=== PATIENT | male | born 1995 | race African-American/Black ===

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

== ENCOUNTER 2019-09-25 12:23 | Emergency (ER) | payer SELFPAY ==
[~2019-09-25] VITALS: Ht 175.3 cm; Wt 60.0 kg
--- NOTE | 2019-09-25 13:21 | RAD ---
Exam performed: One view chest. Indication: Chest pain Date of Service: 09/25/2019 1:05 PM Comparison: None available. Single AP upright portable view chest findings: Cardiomediastinal silhouette is within limits of normal. No acute infiltrates, effusion or pneumothorax is detected. The bony structures are normal. Impression: No acute cardiopulmonary process is detected. Electronically signed by: Siomara Thorpe MD (09/25/2019 1:18 PM) [facility]
[2019-09-25 13:46] VITALS: BP 123/76
--- NOTE | 2019-09-25 14:13 | PHYS DOC ---
Past Medical History Past Medical History: No Pertinent History Past Surgical History: No Surgical History Smoking Status: Current Every Day Smoker Alcohol Use: Occasionally Drug Use: Marijuana Adult General Chief Complaint Chief Complaint: CHEST WALL PAIN HPI HPI Patient is a 24 year old male presented to ER today for evaluation of substernal chest pain that been going on for about 4 days. 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 Patient had been under a lot of stress lately, chest pain brought on with any Emotional problem or anxiety . She denies any family history heart problem, he denies any history of blood clot disorder. Patient denies any recent travel or operation. Patient denies any cough or fever. He had no history of hypertension or diabetes. Review of Systems Review of Systems All other ROS is negative unless otherwise noted in HPI Allergies Allergies Allergies Coded Allergies Type Severity Reaction Last Updated Verified No Known Drug Allergies 12/29/16 No Physical Exam Physical Exam See above Constitutional: Well developed, well nourished, no acute distress, non-toxic appearance. [] HENT: Normocephalic, atraumatic, bilateral external ears normal, oropharynx moist, no oral exudates, nose normal. [] Eyes: PERRLA, EOMI, conjunctiva normal, no discharge. [] Neck: Normal range of motion, no tenderness, supple, no stridor. [] Cardiovascular:Heart rate regular rhythm, no murmur [] Lungs & Thorax: Bilateral breath sounds clear to auscultation [] Abdomen: Bowel sounds normal, soft, no tenderness, no masses, no pulsatile masses. [] Skin: Warm, dry, no erythema, no rash. [] Back: No tenderness, no CVA tenderness. [] Extremities: No tenderness, no cyanosis, no clubbing, ROM intact, no edema. [] Neurologic: Alert and oriented X 3, normal motor function, normal sensory function, no focal deficits noted. [] Psychologic: Affect normal, judgement normal, mood normal. [] Current Patient Data Vital Signs Vital Signs Date Time Temp Pulse Resp B/P (MAP) Pulse Ox O2 Delivery O2 Flow Rate FiO2 09/25/19 13:46 67 16 123/76 (92) 97 Room Air 09/25/19 12:36 98.3 98.3 EKG EKG EKG was done at 13.25, heart rate of 71 beats per minute, normal sinus rhythm, no ST segment elevation.[] Radiology/Procedures Radiology/Procedures [][facility] [address] [place] [address] IMAGING REPORT Signed PATIENT: RANDAL ASCENCIO ACCOUNT: [id number] : 1995 LOCATION: ER AGE: 24 SEX: M EXAM STATUS: REG ER ORD. PHYSICIAN: CLAUDE VARGAS DO REASON: CHEST PAIN PROCEDURE: CHEST AP ONLY Exam performed: One view chest. Indication: Chest pain Date of Service: 09/25/2019 1:05 PM Comparison: None available. Single AP upright portable view chest findings: Cardiomediastinal silhouette is within limits of normal. No acute infiltrates, effusion or pneumothorax is detected. The bony structures are normal. Impression: No acute cardiopulmonary process is detected. Electronically signed by: Siomara Thorpe MD (09/25/2019 1:18 PM) [facility] DICTATED and SIGNED BY: SIOMARA THORPE MD DATE: 09/25/19 1318 Course & Med Decision Making Course & Med Decision Making Pertinent Labs and Imaging studies reviewed. (See chart for details) Patient is a 24-year-old male who was evaluated in the ER today due to chest pain. Patient had no history of hypertension, no history of hypo-diabetic, no history of blood clot disorder. Patient denied any family history of heart disease. Patient is only 24-year-old, the risks of him having a coronary event is very low. EKG and chest x-ray were normal. Will discharge him home. No further work up needed. Dragon Disclaimer Dragon Disclaimer This electronic medical record was generated, in whole or in part, using a voice recognition dictation system. Departure Departure Impression: Primary Impression: Atypical chest pain Disposition: HOME, SELF-CARE Condition: STABLE Referrals: Indra DAWN MD (PCP) follow up with your doctor as needed next week. Patient Instructions: Chest Pain (Nonspecific) Additional Instructions: Thank you for visiting our Emergency Department. We appreciate you trusting us with your care. If any additional problems come up don't hesitate to return to visit us. Please follow up with your primary care provider so they can plan additional care if needed and know about the problem that you had. If symptoms worsen come back to the Emergency Department. Any concerning symptoms that start such as chest pain, shortness of air, weakness or numbness on one side of the body, running high fevers or any other concerning symptoms return to the ER. The HEART Score for CP Pts HEART Score for Chest Pain: HEART Score for Chest Pain Response (Comments) Value History Slighlty/Non-Suspicious 0 ECG Normal 0 Age < 45 0 Risk Factors No Risk Factors 0 Total 0 Risk Factors: Risk Factors: DM, Current or recent (<one month) smoker, HTN, HLP, family history of CAD, obesity. Risk Scores: Score 0 - 3: 2.5% MACE over next 6 weeks - Discharge Home Score 4 - 6: 20.3% MACE over next 6 weeks - Admit for Clinical Observation Score 7 - 10: 72.7% MACE over next 6 weeks - Early Invasive Strategies CLAUDE VARGAS DO Sep 25, 2019 14:13
--- NOTE | 2019-09-26 09:07 | EKG ---
[facility] [address] [place] [address] Test Date: 2019-09-25 Test Time: 13:24:42 Pat Name: RANDAL ASCENCIO Department: Room: Gender: M Tub Operator: : 1995 Requested By: CLAUDE VARGAS Order Number: [id number] Reading MD: Measurements Intervals [place] Rate: 71 P: SC: QRS: 72 QRSD: 78 T: 21 QT: 344 QTc: 378 Interpretive Statements ATRIAL FIBRILLATION NON SPECIFIC ST-T ABNORMALITY (ELEVATION) ABNORMAL ECG No previous ECG available for comparison
== END 2019-09-25 14:19 | disposition home or self-care (01) ==
LOC: ER 12:23
DX: R07.89 Other chest pain (principal); F43.9 Reaction to severe stress, unspecified; F12.90 Cannabis use, unspecified, uncomplicated; F17.200 Nicotine dependence, unspecified, uncomplicated
CPT/HCPCS: 71045; 93005; 99284

== ENCOUNTER 2020-01-25 21:22 | Emergency (ER) | payer SELFPAY ==
[~2020-01-25] VITALS: Ht 175.3 cm; Wt 57.2 kg
--- NOTE | 2020-01-25 21:53 | RAD ---
Study: CR PORTABLE CHEST 1V Indication: Chest pain. Comparison: None. Findings: No pneumothorax or layering effusion. No airspace infiltrate. Within normal limits cardiomediastinal silhouette and orquidea. Grossly intact osseous structures. The visualized upper abdomen is unremarkable. Impression: No acute radiographic abnormality of the chest. Electronically signed by: WILLIAN RUFFIN MD (01/25/2020 9:50 PM) [id number]
[2020-01-25 22:00] LABS: BASO # 0.1 x10^3/uL (0.0-0.2); BASO % 1 % (0-3); EOS # 0.1 x10^3/uL (0.0-0.7); EOS % 1 % (0-3); HEMATOCRIT 45.1 % (39.0-53.0); HEMOGLOBIN 15.2 g/dL (13.0-17.5); LYMPH # 2.6 x10^3/uL (1.0-4.8); LYMPH % 42 % (24-48); MEAN CORPUSCULAR HEMOGLOBIN 31 pg (25-35); MEAN CORPUSCULAR HGB CONC 34 g/dL (31-37); MEAN CORPUSCULAR VOLUME 90 fL (79-100); MONO # 0.5 x10^3/uL (0.0-1.1); MONO % 8 % (0-9); NEUT % 49 % (31-73); PLATELET COUNT 198 x10^3/uL (140-400); RED BLOOD COUNT 4.99 x10^6/uL (4.30-5.70); RED CELL DISTRIBUTION WIDTH 15.1 % (11.5-14.5); WHITE BLOOD COUNT 6.2 x10^3/uL (4.0-11.0)
[2020-01-25 22:08] LABS: CALCIUM 9.1 mg/dL (8.5-10.1); CREATININE 1.2 mg/dL (0.7-1.3); GFR 91.6; POTASSIUM 3.7 mmol/L (3.5-5.1)
--- NOTE | 2020-01-25 22:40 | PHYS DOC ---
Past Medical History Past Medical History: No Pertinent History Past Surgical History: No Surgical History Smoking Status: Current Every Day Smoker Alcohol Use: Occasionally General Adult EDM: Chief Complaint: CHEST PAIN HPI: HPI: 24-year-old male who denies any significant past medical history presents to the ED with complaints of sharp left upper nonradiating chest pain that started at 5 PM while patient was driving to work. Patient states the chest pain has decreased since onset. Has no family history of sudden cardiac or ACS. No recent upper respiratory infections. Does report the pain is reproducible on physical exam. States he smoked marijuana earlier this morning. Denies any cocaine or methamphetamine abuse. Review of systems: Denies associated fever, chills, dyspnea, cough, shortness of breath, hemoptysis, leg swelling, rash, chest pressure heaviness or tightness, back pain, neurologic deficits, headache, diaphoresis or neck pain. Review of Systems: Review of Systems: Constitutional: Denies fever or chills. [] Eyes: Denies change in visual acuity. [] HENT: Denies nasal congestion or sore throat. [] Respiratory: Denies cough or shortness of breath. [] Cardiovascular: Denies chest pain or edema. [] GI: Denies abdominal pain, nausea, vomiting, bloody stools or diarrhea. [] : Denies dysuria. [] Musculoskeletal: Denies back pain or joint pain. [] Integument: Denies rash. [] Neurologic: Denies headache, focal weakness or sensory changes. [] Endocrine: Denies polyuria or polydipsia. [] Lymphatic: Denies swollen glands. [] Psychiatric: Denies depression or anxiety. [] Heart Score: HEART Score for Chest Pain: HEART Score for Chest Pain Response (Comments) Value History Slighlty/Non-Suspicious 0 ECG Normal 0 Age < 45 0 Risk Factors No Risk Factors 0 Troponin < Normal Limit 0 Total 0 Risk Factors: Risk Factors: DM, Current or recent (<one month) smoker, HTN, HLP, family history of CAD, obesity. Risk Scores: Score 0 - 3: 2.5% MACE over next 6 weeks - Discharge Home Score 4 - 6: 20.3% MACE over next 6 weeks - Admit for Clinical Observation Score 7 - 10: 72.7% MACE over next 6 weeks - Early Invasive Strategies Allergies: Allergies: Allergies Coded Allergies Type Severity Reaction Last Updated Verified No Known Drug Allergies 01/25/20 No Physical Exam: PE: Constitutional: Well developed, well nourished, no acute distress, non-toxic appearance. [] HENT: Normocephalic, atraumatic, bilateral external ears normal, oropharynx moist, no oral exudates, nose normal. [] Eyes: PERRLA, EOMI, conjunctiva normal, no discharge. [] Neck: Normal range of motion, no tenderness, supple, no stridor. [] Cardiovascular:Heart rate regular rhythm, no murmur [] Lungs & Thorax: Bilateral breath sounds clear to auscultation [] Abdomen: Bowel sounds normal, soft, no tenderness, no masses, no pulsatile masses. [] Skin: Warm, dry, no erythema, no rash. [] Back: No tenderness, no CVA tenderness. [] Extremities: No tenderness, no cyanosis, no clubbing, ROM intact, no edema. [] Neurologic: Alert and oriented X 3, normal motor function, normal sensory function, no focal deficits noted. [] Psychologic: Affect normal, judgement normal, mood normal. [] Current Patient Data: Labs: Laboratory Tests Test 01/25/20 21:33 White Blood Count 6.2 x10^3/uL (4.0-11.0) Red Blood Count 4.99 x10^6/uL (4.30-5.70) Hemoglobin 15.2 g/dL (13.0-17.5) Hematocrit 45.1 % (39.0-53.0) Mean Corpuscular Volume 90 fL (79-100) Mean Corpuscular Hemoglobin 31 pg (25-35) Mean Corpuscular Hemoglobin Concent 34 g/dL (31-37) Red Cell Distribution Width 15.1 % (11.5-14.5) H Platelet Count 198 x10^3/uL (140-400) Neutrophils (%) (Auto) 49 % (31-73) Lymphocytes (%) (Auto) 42 % (24-48) Monocytes (%) (Auto) 8 % (0-9) Eosinophils (%) (Auto) 1 % (0-3) Basophils (%) (Auto) 1 % (0-3) Neutrophils # (Auto) 3.0 x10^3/uL (1.8-7.7) Lymphocytes # (Auto) 2.6 x10^3/uL (1.0-4.8) Monocytes # (Auto) 0.5 x10^3/uL (0.0-1.1) Eosinophils # (Auto) 0.1 x10^3/uL (0.0-0.7) Basophils # (Auto) 0.1 x10^3/uL (0.0-0.2) Sodium Level 141 mmol/L (136-145) Potassium Level 3.7 mmol/L (3.5-5.1) Chloride Level 102 mmol/L (98-107) Carbon Dioxide Level 32 mmol/L (21-32) Anion Gap 7 (6-14) Blood Urea Nitrogen 13 mg/dL (8-26) Creatinine 1.2 mg/dL (0.7-1.3) Estimated GFR (Cockcroft-Gault) 91.6 Glucose Level 113 mg/dL (70-99) H Calcium Level 9.1 mg/dL (8.5-10.1) Troponin I Quantitative < 0.017 ng/mL (0.000-0.055) Laboratory Tests 01/25/20 21:33 Laboratory Tests 01/25/20 21:33 Vital Signs: Vital Signs Date Time Temp Pulse Resp B/P (MAP) Pulse Ox O2 Delivery O2 Flow Rate FiO2 01/25/20 21:46 98.5 64 18 135/83 (100) 98 Room Air 98.5 EKG: EKG: [] Normal sinus rhythm at 62 bpm, normal intervals, no axis deviation, no T wave inversions, no ST elevations or ST depressions Radiology/Procedures: Radiology/Procedures: IMAGING REPORT Signed PATIENT: RANDAL GOLDMAN ACCOUNT: [id number] : 1995 LOCATION: ER AGE: 24 SEX: M EXAM STATUS: PRE ER ORD. PHYSICIAN: ESSENCE ANN DO REASON: cp PROCEDURE: PORTABLE CHEST 1V Study: CR PORTABLE CHEST 1V Indication: Chest pain. Comparison: None. Findings: No pneumothorax or layering effusion. No airspace infiltrate. Within normal limits cardiomediastinal silhouette and orquidea. Grossly intact osseous structures. The visualized upper abdomen is unremarkable. Impression: No acute radiographic abnormality of the chest. Electronically signed by: WILLIAN RUFFIN MD (01/25/2020 9:50 PM) [id number] DICTATED and SIGNED BY: WILLIAN RUFFIN MD DATE: 01/25/202149 Impression: Concern for atypical chest pain in a low risk heart score patient, PERC negative. Patient stable with normal vital signs. Drug screen positive for marijuana. Patient denies any cocaine or methamphetamine abuse. Patient states symptoms have fully resolved is requesting to be discharged from the hospital. Life-threatening processes considered but are low suspicion at this time. Patient encouraged to follow-up with his primary care physician in 24 to 48 hours. Strict return precautions given for recurrence of symptoms. All of his questions were answered and he was stable at time of discharge. Course & Med Decision Making: Course & Med Decision Making Pertinent Labs and Imaging studies reviewed. (See chart for details) PERC negative w/0 criteria No need for further workup, as <2% chance of PE. If no criteria are positive and clinicians pre-test probability is <15%, PERC Rule criteria are satisfied. Roseanna Disclaimer: Roseanna Disclaimer: This electronic medical record was generated, in whole or in part, using a voice recognition dictation system. Departure Departure Impression: Primary Impression: Chest pain Additional Impression: Tetrahydrocannabinol (THC) use disorder, mild, abuse Disposition: 01 HOME, SELF-CARE Condition: STABLE Referrals: NO PCP (PCP) Patient Instructions: Chest Pain (Nonspecific), Marijuana Abuse and Chemical Dependency Justicifation of Admission Dx: Justifications for Admission: Justification of Admission Dx: N/A ESSENCE ANN DO Jan 25, 2020 22:40
[2020-01-25 22:45] LABS: BARBITURATES NEG (NEG); BENZODIAZEPINES NEG (NEG); CANNABINOIDS POS (NEG); COCAINE NEG (NEG); METHADONE NEG (NEG); OPIATES NEG (NEG); PHENCYCLIDINE NEG (NEG)
[2020-01-25 22:46] LABS: AMPHETAMINE/METHAMPHETAMINE NEG (NEG)
[2020-01-25 23:35] VITALS: BP 137/82
--- NOTE | 2020-01-26 06:36 | EKG ---
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
== END 2020-01-25 23:40 | disposition home or self-care (01) ==
LOC: ER 21:22 → MERGE 21:22 → ER 23:40
DX: R07.89 Other chest pain (principal); F12.10 Cannabis abuse, uncomplicated; F17.200 Nicotine dependence, unspecified, uncomplicated
CPT/HCPCS: 36415; 71045; 80048; 80307; 84484; 85025; 93005; 99285-25